=== PATIENT | female | born 1955 | race Caucasian/White ===

== ENCOUNTER 2022-06-15 10:48 | Emergency (ER) | payer OTHER ==
[~2022-06-15] VITALS: Ht 147.3 cm; Wt 77.1 kg
[2022-06-15 10:52] VITALS: BP 161/70
[2022-06-15] MEDS ORDERED: ACET-9882 PO (11:21)
[2022-06-15] MEDS ORDERED: PROM118S5 PO (11:21)
[2022-06-15] MEDS ORDERED: BENZ-300 PO (11:21)
--- NOTE | 2022-06-15 11:30 | NUR ---
neyda and flu swabs collected and walked to lab
--- NOTE | 2022-06-15 11:35 | NUR ---
66F PRESENTS TO ED WITH C/O COUGH, CHILLS, AND BODY ACHES, DENIES FEVERS, N/V/D OR RECENT SICK CONTACTS, DENIES TAKING MEDS FOR SYMPTOMS.
[2022-06-15 11:40] VITALS: BP 161/70
--- NOTE | 2022-06-15 11:40 | NUR ---
Patient discharged with v/s stable. Written and verbal after care instructions ABOUT VIRAL ILLNESS given and explained. Patient alert, oriented and verbalized understanding of instructions. Ambulatory with steady gait. All questions addressed prior to discharge. ID band removed. Patient advised to follow up with PMD. Rx of ACETAMINOPHEN EXTRA STRENGTH, CEPACOL SORE THROAT LOZENGE AND PROMETHAZINE-DM SYRUP given. Patient educated on indication of medication including possible reaction and side effects. Opportunity to ask questions provided and answered.
[2022-06-15] MEDS ORDERED: TAM75 PO (14:43)
== END 2022-06-15 11:40 | disposition home or self-care (01) ==
LOC: MED 10:48
DX: J10.1 Influenza due to other identified influenza virus with other respiratory manifestations (principal); Z20.822 Contact with and (suspected) exposure to COVID-19; B34.9 Viral infection, unspecified; E11.9 Type 2 diabetes mellitus without complications; I10 Essential (primary) hypertension; Z79.899 Other long term (current) drug therapy; Z88.8 Allergy status to other drugs, medicaments and biological substances
CPT/HCPCS: 99283

== ENCOUNTER 2023-04-25 10:51 | Emergency (ER) | payer OTHER ==
[~2023-04-25] VITALS: Ht 157.5 cm; Wt 77.1 kg
[~2023-04-25 10:51] MED LIST: ACET-9882 PO; BENZ-300 PO; PROM118S5 PO; TAM75 PO
[2023-04-25 11:11] VITALS: BP 130/61; PULSE 86; RESP 20; TEMP 98.3; O2SAT 100
[2023-04-25] MEDS ORDERED: ONDANSETRON 4 MG/2 ML VIAL IVP ONE (12:05)
[2023-04-25] MEDS ORDERED: cefTRIAXone 1,000 MG in DEXT 5% MINI-BAG PLUS 50 ML IV ONE (12:05)
[2023-04-25] MEDS ORDERED: NACL 0.9% 1,000 ML IV SCH (12:05)
[2023-04-25] MEDS ORDERED: KETOROLAC 15 MG/ML VIAL IVP ONE (12:05)
[2023-04-25] MEDS ORDERED: cefTRIAXone 1,000 MG VIAL ONE (12:15)
[2023-04-25 12:24] LABS: BASOPHILS % (AUTO) 0.6 % (0.0-2.0); EOSINOPHILS # (AUTO) 0.2 K/uL (0-0.4); EOSINOPHILS % (AUTO) 2.4 % (0.0-4.0); HEMATOCRIT 34.3 % (36-48); HEMOGLOBIN 11.2 g/dL (12.0-16.0); LYMPHOCYTES # (AUTO) 1.8 K/uL (2.5-16.5); LYMPHOCYTES % (AUTO) 23.2 % (20.5-51.1); MEAN CORPUSCULAR HEMOGLOBIN 28 pg (27-31); MEAN CORPUSCULAR HGB CONC 33 g/dL (33-37); MEAN CORPUSCULAR VOLUME 86.6 fL (80-94); MONOCYTES # (AUTO) 0.7 K/uL (0.8-1.0); MONOCYTES % (AUTO) 8.3 % (1.7-9.3); NEUTROPHILS # (AUTO) 5.1 K/uL (1.8-7.7); NEUTROPHILS % (AUTO) 65.5 % (42.2-75.2); PLATELET COUNT (AUTO) 296 K/uL (140-450); RED BLOOD CELL COUNT(AUTO) 3.97 MIL/uL (4.20-5.40); RED CELL DISTRIBUTION WIDTH 15.8 % (11.6-13.7); WHITE BLOOD COUNT (AUTO) 7.9 K/uL (4.8-10.8)
[2023-04-25 12:47] LABS: APPEARANCE,URINE CLEAR (CLEAR); BILIRUBIN,URINE NEGATIVE (NEGATIVE); BLOOD, URINE NEGATIVE (NEGATIVE); COLOR,URINE YELLOW (YELLOW); LEUKOCYTE ESTERASE ,URINE NEGATIVE (NEGATIVE); NITRITE, URINE POSITIVE (NEGATIVE); PH,URINE 5.5 (5.0-9.0); PROTEIN,URINE TRACE (NEGATIVE); UGLUCOSE 3+ (NEGATIVE); UROBILINOGEN,URINE 0.2 EU/dL (0.2 - 1)
[2023-04-25 12:55] LABS: ALBUMIN 3.1 g/dL (3.4-5.0); ANION GAP 12.5 (8-16); CALCIUM 8.3 mg/dL (8.5-10.1); CARBON DIOXIDE 27.1 mmol/L (21-32); CREATININE 0.9 mg/dL (0.6-1.3); POTASSIUM 4.6 mmol/L (3.5-5.1); TOTAL BILIRUBIN 0.2 mg/dL (0.0-1.0); TOTAL PROTEIN, SERUM 6.9 g/dL (6.4-8.2)
[2023-04-25 12:59] LABS: BACTERIA,URINE 1+ /HPF (None Seen); RBC,URINE 0-5 /HPF (0-5); SQUAMOUS EPITHELIAL CELL,UR 4-10 (MOD) /LPF (0-3 (FEW))
[2023-04-25 13:02] LABS: LACTIC ACID 2.1 mmol/L (0.4-2.0)
[2023-04-25] MEDS ORDERED: CEPH-588 PO (13:12)
[2023-04-25] MEDS ORDERED: NAPR-1704 PO (13:12)
[2023-04-25] MEDS ORDERED: ONDA-188 PO (13:12)
[2023-04-25 14:18] VITALS: BP 130/61; PULSE 84; RESP 20; TEMP 98.3; O2SAT 100
== END 2023-04-25 14:20 | disposition home or self-care (01) ==
LOC: MED 10:51
DX: N10 Acute pyelonephritis (principal); D64.9 Anemia, unspecified; E11.9 Type 2 diabetes mellitus without complications; I10 Essential (primary) hypertension; M54.50 Low back pain, unspecified; Z79.899 Other long term (current) drug therapy; Z88.8 Allergy status to other drugs, medicaments and biological substances; Z90.49 Acquired absence of other specified parts of digestive tract; Z90.710 Acquired absence of both cervix and uterus
CPT/HCPCS: 36415; 80053; 81001; 83605; 85025; 87040; 87086; 93005; 96365; 96375; 99284; J0696; J1885; J2405; J7030

== ENCOUNTER 2023-06-09 14:24 | Emergency (ER) | payer OTHER ==
[~2023-06-09] VITALS: Ht 162.6 cm; Wt 72.6 kg
[~2023-06-09 14:24] MED LIST changes: +CEPH-588 PO; +NAPR-1704 PO; +ONDA-188 PO
[2023-06-09 14:47] VITALS: BP 131/74; PULSE 74; RESP 18; TEMP 97.6; O2SAT 98
[2023-06-09] MEDS ORDERED: KETOROLAC 60 MG/2 ML VIAL IM ONE (15:05)
[2023-06-09] MEDS ORDERED: HYDR-5191 PO (15:59)
[2023-06-09] MEDS ORDERED: IBUP-2213 PO (15:59)
[2023-06-09 16:21] VITALS: BP 132/76; PULSE 78; RESP 19; TEMP 97.6; O2SAT 98
== END 2023-06-09 16:22 | disposition home or self-care (01) ==
LOC: MED 14:24
DX: M79.601 Pain in right arm (principal); E11.9 Type 2 diabetes mellitus without complications; I10 Essential (primary) hypertension; Z90.49 Acquired absence of other specified parts of digestive tract; Z98.890 Other specified postprocedural states
CPT/HCPCS: 73030; 96372; 99283; J1885

== ENCOUNTER 2023-09-24 10:45 | Emergency (ER) | payer OTHER ==
[~2023-09-24] VITALS: Ht 157.5 cm; Wt 74.8 kg
[~2023-09-24 10:45] MED LIST changes: +HYDR-5191 PO; +IBUP-2213 PO
[2023-09-24 11:01] VITALS: BP 135/100; PULSE 84; RESP 20; TEMP 96.4; O2SAT 97
[2023-09-24] MEDS ORDERED: IBUPROFEN 600 MG TAB PO ONE (12:05)
[2023-09-24] MEDS ORDERED: HYDROcodone/APAP 5/325 MG 1 TAB TAB PO ONE (12:05)
[2023-09-24] MEDS ORDERED: IBUP-2213 PO (14:39)
[2023-09-24] MEDS ORDERED: ACET-8905 PO (14:39)
[2023-09-24 15:15] VITALS: BP 142/99; PULSE 73; RESP 20; TEMP 97.8; O2SAT 99
== END 2023-09-24 15:15 | disposition home or self-care (01) ==
LOC: MED 10:45
DX: S66.811A Strain of other specified muscles, fascia and tendons at wrist and hand level, right hand, initial encounter (principal); S20.211A Contusion of right front wall of thorax, initial encounter; E11.9 Type 2 diabetes mellitus without complications; I10 Essential (primary) hypertension; Z88.8 Allergy status to other drugs, medicaments and biological substances; Z79.4 Long term (current) use of insulin; Z79.899 Other long term (current) drug therapy; W18.30XA Fall on same level, unspecified, initial encounter; Y93.89 Activity, other specified; Y92.89 Other specified places as the place of occurrence of the external cause; Y99.8 Other external cause status
CPT/HCPCS: 71101; 72050; 73030; 73060; 73080; 99284

== ENCOUNTER 2023-11-29 16:25 | Emergency (ER) | payer OTHER ==
[~2023-11-29] VITALS: Ht 157.5 cm; Wt 74.8 kg
[~2023-11-29 16:25] MED LIST changes: +ACET-8905 PO
[2023-11-29 16:56] VITALS: BP 133/105; PULSE 82; RESP 19; TEMP 98.5; O2SAT 99
[2023-11-29] MEDS: MORPHINE SULFATE 4 MG/ML SYR IM ONE (18:23)
[2023-11-29] MEDS ORDERED: ONDANSETRON 4 MG ODT ONE (19:06)
[2023-11-29] MEDS: ONDANSETRON 4 MG ODT PO ONE (19:54)
[2023-11-29] MEDS: LIDOCAINE MPF 1% 10 MG/ML VIAL INJ ONE (20:05)
[2023-11-29] MEDS: NACL 0.9% 1,000 ML IV ONE (20:40)
[2023-11-29] MEDS: KETAMINE HCL 50 mg/5 mL UD SYRINGE IV ONE (20:40)
[2023-11-29] MEDS ORDERED: PROPOFOL 200 MG/20 ML VIAL IV ONE (21:19)
[2023-11-29] MEDS ORDERED: ACET-10509 PO (22:28)
[2023-11-29] MEDS ORDERED: NAPR-1704 PO (22:28)
[2023-11-29] MEDS ORDERED: ONDANSETRON 4 MG/2 ML VIAL ONE (22:39)
[2023-11-29] MEDS: ONDANSETRON 4 MG/2 ML VIAL IVP ONE (23:21)
[2023-11-30] VITALS: BP 143/74; PULSE 88; RESP 20; TEMP 98.5; O2SAT 99
== END 2023-11-30 | disposition home or self-care (01) ==
LOC: MED 16:25
DX: S52.611A Displaced fracture of right ulna styloid process, initial encounter for closed fracture (principal); S52.571A Other intraarticular fracture of lower end of right radius, initial encounter for closed fracture; M25.561 Pain in right knee; Z88.8 Allergy status to other drugs, medicaments and biological substances; Z79.899 Other long term (current) drug therapy; W18.30XA Fall on same level, unspecified, initial encounter; Y93.89 Activity, other specified; Y92.89 Other specified places as the place of occurrence of the external cause; Y99.8 Other external cause status
CPT/HCPCS: 25605; 73030; 73080; 73090; 73110; 73130; 73562; 96372; 96374; 99285; G0500; J2270; J2405; J2704; J7030; Q0162; J2001